=== PATIENT | female | born 1980 | race Asian ===

== ENCOUNTER 2023-04-07 03:38 | Inpatient (IN) | payer BC ==
[~2023-04-07] VITALS: Ht 152.4 cm; Wt 65.5 kg
[2023-04-07 04:25] LABS: BASOPHILS % (AUTO) 0.6 % (0.0-2.0); EOSINOPHILS % (AUTO) 0.9 % (1.0-6.0); HEMATOCRIT 40.6 % (36-46); HEMOGLOBIN 13.5 g/dL (12.0-16.0); LYMPHOCYTES % (AUTO) 17.5 % (22.0-44.0); MEAN CORPUSCULAR HEMOGLOBIN 28.8 pg (26.0-34.0); MEAN CORPUSCULAR HGB CONC 33.1 G/dL (31.0-37.0); MEAN CORPUSCULAR VOLUME 87 fL (80-100); MONOCYTES # (AUTO) 0.6 K/uL (0.1-1.0); MONOCYTES % (AUTO) 5.5 % (2.0-9.0); NEUTROPHILS # (AUTO) 8.8 K/uL (1.8-7.7); NEUTROPHILS % (AUTO) 75.5 % (40.0-70.0); PLATELET COUNT (AUTO) 385 K/uL (150-450); RED BLOOD CELL COUNT(AUTO) 4.66 MIL/uL (4.00-5.20); RED CELL DISTRIBUTION WIDTH 13.6 % (11.5-14.5)
[2023-04-07] MEDS ORDERED: TRAZ-257 PO (04:26)
[2023-04-07] MEDS ORDERED: CHL25 PO (04:26)
[2023-04-07] MEDS ORDERED: POTA-92 PO (04:26)
[2023-04-07] MEDS ORDERED: PANT20TA18 PO (04:26)
[2023-04-07] MEDS ORDERED: GABA-1181 PO (04:26)
[2023-04-07] MEDS ORDERED: BUSP15TA3 PO (04:26)
[2023-04-07] MEDS ORDERED: ESCI-8 PO (04:26)
[2023-04-07] MEDS ORDERED: LOSA100T59 PO (04:26)
[2023-04-07] MEDS ORDERED: PROP10TA72 PO (04:26)
[2023-04-07 04:33] LABS: ANION GAP 9 mmol/L (8-16); CALCIUM, TOTAL 9.2 mg/dL (8.8-10.5); CARBON DIOXIDE 28 mmol/L (22-29); CHLORIDE 99 mmol/L (98-107); CREATININE 0.86 mg/dL (0.60-1.30); GLOMERULAR FILTR. RATE CALC > 60 mL/min (>60); GLUCOSE,RANDOM 136 mg/dL (70-110); POTASSIUM 3.3 mmol/L (3.5-5.1); SODIUM SERUM 136 mmol/L (136-145)
[2023-04-07 04:41] LABS: ALANINE AMINOTRANSFERASE 41 U/L (12-78); ALBUMIN 3.8 g/dL (3.4-5.0); ALKALINE PHOSPHATASE 91 U/L (46-116); ASPARTATE AMINOTRANSFERASE 31 U/L (15-37); BILIRUBIN,TOTAL 0.3 mg/dL (0.1-1.0); TOTAL PROTEIN, SERUM 8.5 g/dL (6.4-8.2)
[2023-04-07 05:53] LABS: AMPHET/METH SCREEN,URINE NEGATIVE (NEGATIVE); BARBITURATE SCREEN, URINE NEGATIVE (NEGATIVE); BENZODIAZEPINES SCREEN,URINE NEGATIVE (NEGATIVE); CANNABINOID SCREEN,URINE NEGATIVE (NEGATIVE); COCAINE SCREEN,URINE NEGATIVE (NEGATIVE); METHADONE SCREEN, URINE NEGATIVE (NEGATIVE); OPIATE SCREEN,URINE NEGATIVE (NEGATIVE); PHENCYCLIDINE SCREEN,URINE NEGATIVE (NEGATIVE)
[2023-04-07] MEDS ORDERED: LORazepam 1 MG TABLET PO ONE (06:45)
[2023-04-07 07:04] LABS: COVID AG,FIA SOURCE NASAL SWAB
[2023-04-07] MEDS ORDERED: ESCITALOPRAM OXALATE 20 MG TABLET PO ONE (10:15)
[2023-04-07] MEDS ORDERED: ZOLPIDEM TARTRATE 10 MG TABLET PO PRN (11:00)
[2023-04-07] MEDS ORDERED: HALOPERIDOL 5 MG TABLET PO PRN (11:00)
[2023-04-07 14:29] VITALS: BP 132/91; PULSE 105; RESP 18; TEMP 97.6; O2SAT 98
[2023-04-07 14:32] VITALS: BP 132/91; PULSE 105; RESP 18; TEMP 97.6
[2023-04-07] MEDS: LORazepam 2 MG TABLET PO PRN (15:15)
[2023-04-07] MEDS: PANTOPRAZOLE SODIUM 40 MG DR TABLET PO SCH (15:45)
[2023-04-07] MEDS: GABAPENTIN 300 MG CAPSULE PO SCH (15:45)
[2023-04-07] MEDS: LOSARTAN POTASSIUM 50 MG TABLET PO SCH (16:46)
[2023-04-07] MEDS: CHLORTHALIDONE 25 MG TABLET PO SCH (16:46)
[2023-04-07] MEDS: POTASSIUM CHLORIDE 10 MEQ ER TABLET PO SCH (16:46)
[2023-04-07] MEDS ORDERED: IBUPROFEN 600 MG TABLET PO PRN (17:30)
[2023-04-07] MEDS ORDERED: ALBUTEROL SULFATE HFA 90 MCG/PUFF 8 GM INHALER IH PRN (17:30)
[2023-04-07] MEDS ORDERED: MAGNESIUM HYDROXIDE SUSPENSION 30 ML UDCUP PO PRN (17:30)
[2023-04-07] MEDS ORDERED: OMEPRAZOLE 20 MG CAPSULE PO PRN (17:30)
[2023-04-07] MEDS ORDERED: MAG HYDROX/AL HYDROX/SIMETH ES 30 ML SUSPENSION UDCUP PO PRN (17:30)
[2023-04-07] MEDS ORDERED: LOPERAMIDE HCL 2 MG CAPSULE PO PRN (17:30)
[2023-04-07] MEDS ORDERED: CloNIDine HCL 0.1 MG TABLET PO PRN (17:30)
[2023-04-07] MEDS ORDERED: DOCUSATE SODIUM 100 MG CAPSULE PO PRN (17:30)
[2023-04-07] MEDS ORDERED: BENZOCAINE/MENTHOL LOZENGE PO PRN (17:30)
[2023-04-07] MEDS ORDERED: ONDANSETRON HCL 4 MG TABLET PO PRN (17:30)
[2023-04-07] MEDS ORDERED: PETROLATUM,WHITE 28 GM JELLY TP PRN (17:30)
[2023-04-07] MEDS ORDERED: BACITRACIN 28 GM OINTMENT TP PRN (17:30)
[2023-04-07] MEDS ORDERED: ACETAMINOPHEN 325 MG TABLET PO PRN (17:30)
[2023-04-07 20:44] VITALS: BP 136/82; PULSE 91; RESP 18; TEMP 97.7
[2023-04-08] MEDS: LORazepam 2 MG TABLET PO PRN ×3 (08:02→18:55)
[2023-04-08 09:32] VITALS: BP 122/80; PULSE 110; RESP 20; TEMP 97.7; O2SAT 98
[2023-04-08] MEDS: LOSARTAN POTASSIUM 50 MG TABLET PO SCH (09:50)
[2023-04-08] MEDS: PANTOPRAZOLE SODIUM 40 MG DR TABLET PO SCH (09:50)
[2023-04-08] MEDS: POTASSIUM CHLORIDE 10 MEQ ER TABLET PO SCH (09:50)
[2023-04-08] MEDS: CHLORTHALIDONE 25 MG TABLET PO SCH (09:50)
[2023-04-08] MEDS ORDERED: DESO1TAB92 PO (14:35)
[2023-04-08] MEDS: ESCITALOPRAM OXALATE 10 MG TABLET PO SCH (14:48)
[2023-04-08] MEDS: GABAPENTIN 300 MG CAPSULE PO SCH (16:34)
[2023-04-08] MEDS: BusPIRone HCL 15 MG TABLET PO SCH (16:34)
[2023-04-08] MEDS: PROPRANOLOL HCL 10 MG TABLET PO SCH (16:34)
[2023-04-08 21:25] VITALS: BP 122/81; PULSE 92; RESP 18; TEMP 99.8; O2SAT 92
[2023-04-08 21:43] VITALS: RESP 18; TEMP 98.1; O2SAT 100
[2023-04-09] MEDS: CHLORTHALIDONE 25 MG TABLET PO SCH (08:13)
[2023-04-09] MEDS: POTASSIUM CHLORIDE 10 MEQ ER TABLET PO SCH (08:13)
[2023-04-09] MEDS: PANTOPRAZOLE SODIUM 40 MG DR TABLET PO SCH (08:13)
[2023-04-09] MEDS: LOSARTAN POTASSIUM 50 MG TABLET PO SCH (08:13)
[2023-04-09] MEDS: BusPIRone HCL 15 MG TABLET PO SCH ×2 (08:13→16:27)
[2023-04-09] MEDS: ESCITALOPRAM OXALATE 10 MG TABLET PO SCH (08:13)
[2023-04-09] MEDS: PROPRANOLOL HCL 10 MG TABLET PO SCH ×2 (08:14→16:27)
[2023-04-09] MEDS: LORazepam 2 MG TABLET PO PRN ×3 (08:41→19:03)
[2023-04-09 09:45] VITALS: BP 123/83; PULSE 110; RESP 18; TEMP 97.7; O2SAT 98
[2023-04-09] MEDS: GABAPENTIN 300 MG CAPSULE PO SCH (16:27)
[2023-04-09 20:15] VITALS: BP 108/70; PULSE 80; RESP 18; TEMP 97.8
[2023-04-09] MEDS ORDERED: PROP10TA72 PO (22:39)
[2023-04-09] MEDS ORDERED: ESCI-8 PO (22:39)
[2023-04-09] MEDS ORDERED: BUSP15 PO (22:39)
[2023-04-10] MEDS: LORazepam 2 MG TABLET PO PRN (08:08)
[2023-04-10] MEDS: LOSARTAN POTASSIUM 50 MG TABLET PO SCH (08:10)
[2023-04-10] MEDS: ESCITALOPRAM OXALATE 10 MG TABLET PO SCH (08:10)
[2023-04-10] MEDS: CHLORTHALIDONE 25 MG TABLET PO SCH (08:10)
[2023-04-10] MEDS: PANTOPRAZOLE SODIUM 40 MG DR TABLET PO SCH (08:10)
[2023-04-10] MEDS: PROPRANOLOL HCL 10 MG TABLET PO SCH (08:10)
[2023-04-10] MEDS: BusPIRone HCL 15 MG TABLET PO SCH (08:11)
[2023-04-10] MEDS: POTASSIUM CHLORIDE 10 MEQ ER TABLET PO SCH (08:11)
[2023-04-10 08:25] VITALS: BP 151/70; PULSE 99; RESP 18; TEMP 97.2; O2SAT 99
== END 2023-04-10 11:10 | disposition home or self-care (01) | DRG 881 ==
LOC: EMS 03:43 → 3EI 13:52
PROVIDERS: ADMIT Psychiatry & Neurology Psychiatry; ATTEND Psychiatry & Neurology Psychiatry
DX: F32.9 Major depressive disorder, single episode, unspecified (principal); F23 Brief psychotic disorder; R45.851 Suicidal ideations; I10 Essential (primary) hypertension; E87.6 Hypokalemia; G47.00 Insomnia, unspecified; K21.9 Gastro-esophageal reflux disease without esophagitis; Z20.822 Contact with and (suspected) exposure to COVID-19; F41.9 Anxiety disorder, unspecified; K59.00 Constipation, unspecified; S60.229A Contusion of unspecified hand, initial encounter; X58.XXXA Exposure to other specified factors, initial encounter; Y93.89 Activity, other specified; Y92.89 Other specified places as the place of occurrence of the external cause; Y99.8 Other external cause status; Z88.5 Allergy status to narcotic agent; Z91.041 Radiographic dye allergy status
CPT/HCPCS: 80053; 80307; 84703; 85025; 99285; G0480

== ENCOUNTER 2024-07-17 10:18 | Inpatient (IN) | payer BC ==
[~2024-07-17] VITALS: Ht 152.4 cm; Wt 70.9 kg
[~2024-07-17 10:18] MED LIST: BUSP15 PO; ESCI-8 PO; PROP10TA72 PO
[2024-07-17 10:57] LABS: BASOPHILS % (AUTO) 0.7 % (0.0-2.0); EOSINOPHILS % (AUTO) 1.2 % (1.0-6.0); HEMATOCRIT 39.8 % (36-46); HEMOGLOBIN 13.2 g/dL (12.0-16.0); LYMPHOCYTES % (AUTO) 18.5 % (22.0-44.0); MEAN CORPUSCULAR HEMOGLOBIN 28.7 pg (26.0-34.0); MEAN CORPUSCULAR HGB CONC 33.1 G/dL (31.0-37.0); MEAN CORPUSCULAR VOLUME 87 fL (80-100); MONOCYTES # (AUTO) 0.8 K/uL (0.1-1.0); MONOCYTES % (AUTO) 7.1 % (2.0-9.0); NEUTROPHILS # (AUTO) 7.9 K/uL (1.8-7.7); NEUTROPHILS % (AUTO) 72.5 % (40.0-70.0); PLATELET COUNT (AUTO) 317 K/uL (150-450); RED CELL DISTRIBUTION WIDTH 14.1 % (11.5-14.5); WHITE BLOOD COUNT (AUTO) 10.8 K/uL (4.5-11.0)
[2024-07-17 11:06] LABS: ANION GAP 9 mmol/L (8-16); CALCIUM, TOTAL 8.9 mg/dL (8.8-10.5); CARBON DIOXIDE 27 mmol/L (22-29); CHLORIDE 101 mmol/L (98-107); CREATININE 0.73 mg/dL (0.60-1.30); GLOMERULAR FILTR. RATE CALC > 60 mL/min (>60); GLUCOSE,RANDOM 98 mg/dL (70-110); POTASSIUM 3.5 mmol/L (3.5-5.1); SODIUM SERUM 137 mmol/L (136-145); UREA NITROGEN, BLOOD 11 mg/dL (7-18)
[2024-07-17 11:12] LABS: ALCOHOL, BLOOD (SERUM) < 3 mg/dL (0-10)
[2024-07-17] MEDS ORDERED: QUEtiapine FUMARATE 100 MG TABLET PO PRN (11:15)
[2024-07-17] MEDS ORDERED: ZOLPIDEM TARTRATE 10 MG TABLET PO PRN (11:15)
[2024-07-17] MEDS ORDERED: MAG HYDROX/ALUMINUM HYD/SIMETH ES 30 ML SUSPENSION UDCUP PO PRN (11:15)
[2024-07-17] MEDS ORDERED: ACETAMINOPHEN 325 MG TABLET PO PRN (11:15)
[2024-07-17] MEDS ORDERED: GuaiFENesin/D-METHORPHAN [SUGAR-FREE] 200-20MG/10 ML SYRUP UDCUP PO PRN (11:15)
[2024-07-17] MEDS ORDERED: HydrOXYzine PAMOATE 50 MG CAPSULE PO PRN (11:15)
[2024-07-17] MEDS ORDERED: TUBERCULIN, PURIFIED PROTEIN DERIVATIVE 5 TU/0.1 ML SYRINGE ID ONE (11:15)
[2024-07-17] MEDS ORDERED: PROMETHAZINE HCL 25 MG TABLET PO PRN (11:15)
[2024-07-17] MEDS ORDERED: LOPERAMIDE HCL 2 MG CAPSULE PO PRN (11:15)
[2024-07-17 11:17] LABS: HCG,QUANTITATIVE < 1 mIU/mL (0-6)
[2024-07-17] MEDS ORDERED: POTA-92 PO (11:28)
[2024-07-17] MEDS ORDERED: LOSA100T59 PO (11:28)
[2024-07-17] MEDS ORDERED: GABA-1181 PO (11:28)
[2024-07-17] MEDS ORDERED: TRAZ-257 PO (11:28)
[2024-07-17] MEDS ORDERED: PANT20TA18 PO (11:28)
[2024-07-17] MEDS ORDERED: AMOX-457 PO (11:28)
[2024-07-17 11:32] LABS: COVID AG,FIA SOURCE NPH
[2024-07-17] MEDS ORDERED: ESCI-8 PO (11:37)
[2024-07-17 11:51] LABS: APPEARANCE,URINE CLEAR (CLEAR); BILIRUBIN,URINE NEGATIVE (NEGATIVE); COLOR,URINE COLORLESS (YELLOW); GLUCOSE, URINE (UA) NEGATIVE (NEGATIVE); KETONES,URINE NEGATIVE (NEGATIVE); LEUKOCYTE ESTERASE ,URINE MODERATE (NEGATIVE); NITRATE,URINE NEGATIVE (NEGATIVE); OCCULT BLOOD,URINE NEGATIVE (NEGATIVE); PROTEIN,URINE NEGATIVE (NEGATIVE); SPECIFIC GRAVITIY, URINE 1.005 (1.003-1.030); UROBILINOGEN,URINE <=1.0 mg/dL (<=1.0)
[2024-07-17 11:52] LABS: SARS-COV2 (COVID) ANTIGEN,FIA Negative (Negative)
[2024-07-17 11:57] LABS: ALCOHOL, URINE DRUG SCREEN NEGATIVE (NEGATIVE); AMPHET/METH SCREEN,URINE NEGATIVE (NEGATIVE); BARBITURATE SCREEN, URINE NEGATIVE (NEGATIVE); BENZODIAZEPINES SCREEN,URINE NEGATIVE (NEGATIVE); CANNABINOID SCREEN,URINE NEGATIVE (NEGATIVE); COCAINE SCREEN,URINE NEGATIVE (NEGATIVE); METHADONE SCREEN, URINE NEGATIVE (NEGATIVE); OPIATE SCREEN,URINE NEGATIVE (NEGATIVE); PHENCYCLIDINE SCREEN,URINE NEGATIVE (NEGATIVE)
[2024-07-17 12:05] LABS: BACTERIA,URINE None Seen /HPF (None Seen); RBC,URINE None Seen /HPF (0-2); SQUAMOUS EPITHELIAL CELL,UR Few /LPF (None Seen)
[2024-07-17 12:19] LABS: HCG,QUAL URINE NEGATIVE (NEGATIVE)
[2024-07-17 16:40] VITALS: O2SAT 98
[2024-07-17] MEDS: THIAMINE 100 MG TABLET PO SCH (17:00)
[2024-07-17] MEDS: BusPIRone HCL 15 MG TABLET PO SCH (17:00)
[2024-07-17 18:54] VITALS: BP 133/95; PULSE 81; RESP 17; TEMP 97.4; O2SAT 100
[2024-07-17] MEDS: MELATONIN 5 MG TABLET PO SCH (21:23)
[2024-07-17] MEDS: GABAPENTIN 300 MG CAPSULE PO SCH (21:23)
[2024-07-17] MEDS: TraZODone HCL 50 MG TABLET PO SCH (21:23)
[2024-07-17] MEDS: LOSARTAN POTASSIUM 50 MG TABLET PO SCH (21:24)
[2024-07-17 22:10] VITALS: BP 126/89; PULSE 75; RESP 18; TEMP 97.5; O2SAT 99
[2024-07-18] MEDS: LORazepam 2 MG TABLET PO PRN (08:02)
[2024-07-18 08:24] VITALS: BP 133/77; PULSE 84; RESP 17; TEMP 97; O2SAT 98
[2024-07-18 09:03] LABS: HEMOGLOBIN A1C 5.9 % (3.8-5.6)
[2024-07-18 09:12] LABS: CHOL/HDL RATIO 3.1 (3.9-5.7); FREE T4 (FREE THYROXINE) 1.1 ng/dL (0.76-1.46); THYROID STIMULATING HORMONE 0.29 uIU/mL (0.36-3.74)
[2024-07-18] MEDS: NALTREXONE HCL 50 MG TABLET PO SCH (09:13)
[2024-07-18] MEDS: ESCITALOPRAM OXALATE 10 MG TABLET PO SCH (09:14)
[2024-07-18] MEDS: FOLIC ACID 1 MG TABLET PO SCH (09:14)
[2024-07-18] MEDS: MULTIVITAMINS WITH MINERALS, THERAPEUTIC TABLET PO SCH (09:14)
[2024-07-18] MEDS: OMEGA-3/DHA/EPA/FISH OIL 1,000 MG CAPSULE PO SCH (09:14)
[2024-07-18 19:10] VITALS: BP 139/87
[2024-07-18 21:15] VITALS: BP 111/70; PULSE 93; RESP 18; TEMP 97; O2SAT 97
[2024-07-19 08:15] VITALS: BP 106/84; PULSE 89; RESP 16; TEMP 96.7; O2SAT 98
[2024-07-19] MEDS: ESCITALOPRAM OXALATE 10 MG TABLET PO SCH (08:47)
[2024-07-19] MEDS: MAGNESIUM HYDROXIDE SUSPENSION 30 ML UDCUP PO PRN (10:26)
[2024-07-19] MEDS ORDERED: OMEG100033 PO (15:49)
[2024-07-19] MEDS ORDERED: ESCI-8 PO (15:49)
[2024-07-19] MEDS ORDERED: GABA-1181 PO (15:49)
[2024-07-19] MEDS ORDERED: MELA5TAB40 PO (15:49)
[2024-07-19] MEDS ORDERED: TRAZ-252 PO (15:49)
[2024-07-19] MEDS ORDERED: BUSP15 PO (15:49)
[2024-07-19 20:24] VITALS: BP 130/81; PULSE 91; RESP 16; TEMP 96.5; O2SAT 96
[2024-07-20 08:23] VITALS: BP 120/72; PULSE 80; RESP 15; TEMP 97.9; O2SAT 97
== END 2024-07-20 13:04 | disposition home or self-care (01) | DRG 885 ==
LOC: EMS 10:18 → B2S 16:04
PROVIDERS: ADMIT Psychiatry & Neurology Psychiatry; ATTEND Psychiatry & Neurology Psychiatry
PROC: GZ58ZZZ Individual Psychotherapy, Cognitive-Behavioral (ICD-10-PCS; 2024-07-17)
PROC: GZ56ZZZ Individual Psychotherapy, Supportive (ICD-10-PCS; 2024-07-18)
PROC: GZHZZZZ Group Psychotherapy (ICD-10-PCS; principal; 2024-07-20)
DX: F33.2 Major depressive disorder, recurrent severe without psychotic features (principal); R45.851 Suicidal ideations; I10 Essential (primary) hypertension; Z20.822 Contact with and (suspected) exposure to COVID-19; K21.9 Gastro-esophageal reflux disease without esophagitis; Z79.899 Other long term (current) drug therapy; Z88.5 Allergy status to narcotic agent; Z90.49 Acquired absence of other specified parts of digestive tract; Z91.041 Radiographic dye allergy status; Z91.148 Patient's other noncompliance with medication regimen for other reason
CPT/HCPCS: 80048; 80061; 80307; 81001; 83036; 84439; 84443; 84702; 84703; 85025; 86592; 87077; 87086; 87186; 99285; G0480